=== PATIENT | male | born 1950 | race Caucasian/White ===

== ENCOUNTER 2019-07-28 12:39 | Outpatient (CLI) | payer OTHER, SELFPAY ==
--- NOTE | 2019-07-28 12:47 | USCV_ITS ---
Db Bach Age: 69 Gender: M : 1950 Exam Date: 07/28/2019 12:59 Ordering Phys: Mouna Metcalf XX Technologist: Sandra Saeed Exam Location: [facility] [place] Indication: TIA WITH RT EYE INVOLVMENT Risk Factors: Unknown Previous Vascular Surgery: None Right Brachial BP: / Left Brachial BP: / Right Left Velocity (cm/s) Spectral Plaque Velocity (cm/s) Spectral Plaque Syst/Diast Broadening Syst/Diast Broadening 87.10/ 17.60 Prox CCA 56.80 / 15.60 57.50/ 13.70 Mid CCA 65.30 / 14.90 42.10/ 10.10 Distal CCA 40.50 / 13.50 42.00/ 14.20 Prox ICA 54.00 / 17.00 64.50/ 23.90 Mid ICA 63.20 / 26.30 73.60/ 29.70 Distal ICA 71.00 / 33.40 70.50 ECA 78.80 1.28 ICA/CCA 1.09 Antegrade Vertebral Antegrade 32.30/ 6.40 cm/s 43.30/ 18.50 cm/s Tri Subclavian Tri 105.8 111.0 0 0 FINDINGS Comparison: none available. No significant elevation of systolic or diastolic velocities. Waveforms are normal. Mild, diffuse, bilateral, intimal thickening with no elevation of velocity. Bilateral antegrade vertebral arteries. CONCLUSIONS Bilateral ICA stenosis less than 50%. Mild diffuse intimal thickening . Dr. Ruth Randolph DO (Electronically Signed) Final Date: 29 July 2019 07:44 S
== END 2019-07-28 12:40 | disposition home or self-care (01) ==
LOC: RAD 12:41
PROVIDERS: Family Provider Nurse Practitioner; Visit Provider Psychiatry & Neurology Neurology
DX: I65.23 Occlusion and stenosis of bilateral carotid arteries (principal)
CPT/HCPCS: 93880

== ENCOUNTER 2020-12-06 11:27 | Outpatient (CLI) | payer OTHER, SELFPAY ==
--- NOTE | 2020-12-06 11:45 | MR_ITS ---
WS: [id number] MRI LUMBAR SPINE NONCONTRAST TECHNIQUE: Sagittal T1, T2 and STIR imaging. Axial T1 and T2 imaging. CLINICAL INFORMATION: LOW BACK PAIN W/RADICULOPATHY COMPARISON: None. FINDINGS: Mild lumbar curve. No acute compression. No high-grade central canal stenosis. Degenerative endplate- type changes worse at L3-4. L1-L2: Mild annular bulging. Tiny annular fissure. Spinal canal and foramen are patent. Mild facet ar thropathy. L2-L3: Mild disc bulging with slight effacement of the ventral thecal sac. Mild facet arthropathy. Sl ight narrowing of the subarticular recess bilaterally. Foramen are patent. L3-L4: Mild annular bulging. Small right foraminal protrusion with mild right foraminal narrowing. Sl ight narrowing of the left subarticular recess. Left foramen is patent. Mild facet arthropathy. L4-L5:Minimal annular bulging. Mild right and no significant left foraminal narrowing. Moderate facet arthropathy. Spinal canal is patent. L5-S1: Mild annular bulging. Spinal canal is patent. Foramen are patent. Mild to moderate facet arthr opathy. Visualized pelvic bony structures: Normal. Paravertebral soft tissues: Normal. MR/MR lumbar spine wo con* [id number] IMPRESSION: 1. Mild lumbar curve. No acute compression. No high-grade central canal stenos is. 2. Small right foraminal protrusion L3-4 with mild right foraminal narrowing. 3. Mild right L4-5 foraminal narrowing. 4. Mild to moderate facet arthropathy L3-L5. 5. Tiny annular fissure L1-2. 6. Mild annular bulging L2-3 with mild facet arthropathy. Slight narrowing of the subarticular recess bilaterally at this level. Mild narrowing of the left L 3-4 subarticular recess.
== END 2020-12-06 11:28 | disposition home or self-care (01) ==
LOC: RADSHAW 11:29
PROVIDERS: Family Provider Nurse Practitioner; PCP Nurse Practitioner; Visit Provider Nurse Practitioner
DX: M54.16 Radiculopathy, lumbar region (principal); M51.26 Other intervertebral disc displacement, lumbar region; M47.816 Spondylosis without myelopathy or radiculopathy, lumbar region; Q05.7 Lumbar spina bifida without hydrocephalus
CPT/HCPCS: 72148

== ENCOUNTER 2022-12-22 06:35 | Outpatient (CLI) | payer OTHER, SELFPAY ==
--- NOTE | 2022-12-22 06:46 | USCV_ITS ---
Db Bach Age: 72 Gender: M : 1950 Exam Date: 12/22/2022 06:56 Ordering Phys: Yudy Cano Technologist: Exam Location: [facility] – [place] Indication: screening HISTORY: Diameter (cm) AP x Transverse x Length Velocity (cm/s) Waveform Prox Aorta: 1.94 x 2.07 x 71.90 Mid Aorta: 1.71 x 2.08 x 78.50 Distal Aorta: 1.77 x 1.47 x 62.80 Right Iliac Prox: 0.99 x 1.01 x 147.40 Left Iliac Prox: 1.00 x 1.19 x 183.60 Stent Prox Landing x x Aneurysmal Sac Max x x Lt Lat Sac Dim Rt Lat Sac Dim Stent Dist Landing x x Right Iliac Stent x x Left Iliac Stent x x Right Renal Art Left Renal Art FINDINGS: Comparison: none available. Abdominal aorta is patent. Normal course and caliber of the abdominal aorta with no aneurysmal dilatation. Minimal scattered atherosclerotic plaque. CONCLUSIONS No evidence of abdominal aortic or bilateral iliac aneurysm. Dr. Ruth Randolph DO (Electronically Signed) Final Date: 22 December 2022 13:43 S
== END 2022-12-22 06:36 | disposition home or self-care (01) ==
PROVIDERS: PCP Nurse Practitioner; Visit Provider Nurse Practitioner
DX: Z01.89 Encounter for other specified special examinations (principal)
CPT/HCPCS: 76706

== ENCOUNTER → 2023-10-14 08:23 | Outpatient (BNVA) | payer OTHER, SELFPAY | PROVIDERS: PCP Nurse Practitioner; Visit Provider Nurse Practitioner Family | DX: L57.0 Actinic keratosis (principal); L57.8 Other skin changes due to chronic exposure to nonionizing radiation; D22.39 Melanocytic nevi of other parts of face; L81.4 Other melanin hyperpigmentation; L82.1 Other seborrheic keratosis; Z80.8 Family history of malignant neoplasm of other organs or systems | CPT/HCPCS: 17000; 99213 ==

== ENCOUNTER 2024-01-11 07:18 | Outpatient (CLI) | payer OTHER, SELFPAY ==
[2024-01-11 07:39] VITALS: BMI 24.3
--- NOTE | 2024-01-11 07:39 | ECG_ITS ---
[facility] Test Date: 2024-01-11 Pat Name: Db Bach Department: Room: Gender: Male Batch Or Continuous Still Operator: : 1950 Requested By: Yudy Desai Order Number: [id number] Crys BRIDGES: Interpretive Statements Lung unchanged pre/post procedure; Intraprocedure shortess of breath; Symptoms resoled by discharge [email or web address]
--- NOTE | 2024-01-11 07:39 | NMCV_ITS ---
NM patricia perf SPECT r/s* [id number] Db Bach Age: 73 Gender: M : 1950 Exam Date: 01/11/2024 08:22 Ordering Phys: Yudy Cano Technologist: STEFANIA Lenz Exam Location: [facility] Indications: CP STRESS TEST Please see separate stress test report in [facility] for full findings IMAGE PROTOCOL Rest/Stress 1 Lexiscan Day Radiopharmaceutical Dose (mCi) Administration Site Administered by Rest: Tc-99m 10.5 IV STEFANIA Lenz Sestamibi Stress:Tc-99m 32.6 IV STEFANIA Lenz Sestamibi Rest: 11-Jan-2024 60 Discovery 630 Stress: 11-Jan-2024 30 Discovery 630 0.4mg Lexiscan. Images obtained in supine and prone position. SPECT RESULTS Technical Quality: Excellent Raw Data Analysis: Normal Image Corrections: No attenuation or motion correction applied Summed Stress Score: 7 Summed Rest Score: 7 Summed Difference Score: 1 PERFUSION FINDINGS There is medium to large sized area of partially reversible perfusion defect noted in inferior and inferolateral [place]. 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 FUNCTIONAL RESULTS (calculated via Gated SPECT) Stress Image LV EF (%): 54 Stress EDV (mL):92 TID: 1.55 Stress ESV (mL):42 FUNCTIONAL FINDINGS: There is normal left ventricular systolic function. TID ratio is elevated. IMPRESSIONS 1. 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 2. LV systolic function is normal 3. TID ratio is elevated. This may represent subendocardial ischemia Hugo Arroyo MD (Electronically Signed) Final Date: 14 January 2024 08:58 S
[2024-01-11] MEDS: regadenoson 0.4 Mg/5 ml Syringe IVP (09:00)
[2024-01-11 09:07] VITALS: BP 117/71; PULSE 75
== END 2024-01-11 07:19 | disposition home or self-care (01) ==
PROVIDERS: PCP Nurse Practitioner; Visit Provider Nurse Practitioner
DX: R06.00 Dyspnea, unspecified (principal); R94.39 Abnormal result of other cardiovascular function study
CPT/HCPCS: 36415; 78452; 93017; 96374; A9500; J2785

== ENCOUNTER → 2024-01-27 09:09 | Outpatient (BNVA) | payer OTHER, SELFPAY | PROVIDERS: PCP Nurse Practitioner; Visit Provider Surgery | DX: Z12.11 Encounter for screening for malignant neoplasm of colon (principal) | CPT/HCPCS: 99204 ==

== ENCOUNTER 2024-02-23 11:24 | Day surgery (SDC) | payer OTHER, SELFPAY ==
[2024-02-23 11:43] VITALS: BP 160/89; PULSE 70; RESP 17; O2SAT 98; BMI 24.3
--- NOTE | 2024-02-23 11:51 | ANES.PREANE2 ---
Pre-Anesthetic Assessment Height/Weight: Height 1.73 m Weight 72.575 kg Pulse Resp BP Pulse Ox O2 Del Method 70 17 160/89 98 Room Air 02/23/24 11:43 02/23/24 11:43 02/23/24 11:43 02/23/24 11:43 02/23/24 11:43 Operation Date: 02/23/24 12:25 Proposed Procedures p Colonoscopy 35737, G0105, Z12.11(Not Applicable) - Forest Altamirano MD Familial anesthetic complications: None Was Beta Tari taken within 24 hours: N/A Was Clonidine taken within 24 hours: N/A Last intake: Intake Last Liquid Date 02/22/24 Last Liquid Time 22:00 Last Solid Date 02/21/24 Last Solid Time 16:00 Social No alcohol and No tobacco Exam alert, oriented x 3, clear to auscultation bilaterally and regular rate & rhythm Airway Mallampati: Class I Dentition: false GI Gastroesophageal Reflux Disease Metabolic Hyperlipidemia Anesthetic Plan ASA status: 2 Anesthesia: General Risk of > 500 ml blood loss (7ml/kg in children): No Medications/Allergies Home Medications Medication Instructions Recorded Confirmed Last Taken Type ascorbic acid (vitamin C) 500 mg 500 mg PO DAILY 12/19/21 02/18/24 02/21/24 History capsule atorvastatin 20 mg tablet 20 mg PO DAILY 12/19/21 02/18/24 02/21/24 History cyclobenzaprine 10 mg tablet 10 mg PO TID PRN Muscle Spasm 12/19/21 02/18/24 Unknown History omega 5-sak-acc-fish oil 60 mg-90 1 cap PO DAILY 12/19/21 02/18/24 02/21/24 History mg-500 mg capsule (Fish Oil) omeprazole 40 mg capsule,delayed 40 mg PO DAILY 12/19/21 02/18/24 02/21/24 History release tamsulosin 0.4 mg capsule 0.4 mg PO DAILY 12/19/21 02/18/24 02/21/24 History Allergies Allergy/AdvReac Type Severity Reaction Status Date / Time No Known Allergies Allergy Verified 02/18/24 08:01 [facility] Anesthesia Medical History Hyperlipidemia Gastro-esophageal reflux disease without esophagitis Benign prostate hyperplasia 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
[2024-02-23] MEDS: sodium chloride 0.9% 1,000 ML 30 ML IV (11:52)
--- NOTE | 2024-02-23 12:18 | P.HPUD_ITS ---
Surgery/Procedure H&P Update DATE OF PROCEDURE: February 23, 2024 DATE H&P PERFORMED: 01/27/24 H&P UPDATE INFORMATION: I have reviewed H&P completed within last 30 days, I have examined patient prior to procedure, No changes to prior documentation and H&P is in [facility] [place] EMR on date indicated PLANNED PROCEDURE: Operation Date: 02/23/24 12:25 Proposed Procedures p Colonoscopy 67208, G0105, Z12.11(Not Applicable) - Forest Altamirano MD
[2024-02-23 12:43] VITALS: BP 101/66; PULSE 59; RESP 18; TEMP 36.2; O2SAT 95
[2024-02-23 12:49] VITALS: BP 114/83; PULSE 56; RESP 18; TEMP 36.2; O2SAT 92
--- NOTE | 2024-02-23 13:19 | ANE.PACU2 ---
Inpatient post-anesthesia follow up: Airway intact: Yes Vital signs: Temperature 97.1 F Pulse Rate 56 Respiratory Rate 18 Blood Pressure 114/83 Pulse Oximetry 92 Oxygen Delivery Me thod Room Air Oxygen Flow Rate Fraction of Inspir ed Oxygen Hydration adequate: Yes Nausea and vomiting: Yes Pain level: 1 Mental status: Baseline
== END 2024-02-23 13:20 | disposition home or self-care (01) ==
PROVIDERS: PCP Nurse Practitioner; Visit Provider Surgery
PROC: 0DJD8ZZ Inspection of Lower Intestinal Tract, Via Natural or Artificial Opening Endoscopic (ICD-10-PCS; CPT 45378; principal; 2024-02-23 12:25)
DX: Z12.11 Encounter for screening for malignant neoplasm of colon (principal); D12.3 Benign neoplasm of transverse colon; K21.9 Gastro-esophageal reflux disease without esophagitis; E78.5 Hyperlipidemia, unspecified; F17.200 Nicotine dependence, unspecified, uncomplicated
CPT/HCPCS: 45380; 88305; J2704; J7030

== ENCOUNTER → 2024-03-22 13:12 | Outpatient (BNVA) | payer OTHER, SELFPAY | PROVIDERS: PCP Nurse Practitioner; Visit Provider Surgery | DX: Z09 Encounter for follow-up examination after completed treatment for conditions other than malignant neoplasm (principal) | CPT/HCPCS: 99213 ==

== ENCOUNTER → 2024-05-11 14:33 | Outpatient (BNVA) | payer OTHER, SELFPAY | PROVIDERS: PCP Nurse Practitioner; Visit Provider Internal Medicine Cardiovascular Disease | DX: R07.9 Chest pain, unspecified (principal) | CPT/HCPCS: 93005 ==

== ENCOUNTER → 2024-10-13 10:42 | Outpatient (BNVA) | payer OTHER, SELFPAY | PROVIDERS: PCP Nurse Practitioner; Visit Provider Nurse Practitioner Family | DX: L24.9 Irritant contact dermatitis, unspecified cause (principal); L80 Vitiligo; L57.8 Other skin changes due to chronic exposure to nonionizing radiation; D22.39 Melanocytic nevi of other parts of face; L81.4 Other melanin hyperpigmentation; L82.1 Other seborrheic keratosis; Z80.8 Family history of malignant neoplasm of other organs or systems; L57.0 Actinic keratosis | CPT/HCPCS: 17000; 99214 ==

== ENCOUNTER 2024-12-09 08:21 | Outpatient (CLI) | payer OTHER, SELFPAY ==
--- NOTE | 2024-12-09 08:24 | USCV_ITS ---
Db Bach Age: 74 Gender: M : 1950 Exam Date: 12/09/2024 08:40 Ordering Phys: Yudy Cano Technologist: NAHUM Exam Location: [facility] [place] Indication: AAA screening HISTORY: Diameter (cm) AP x Transverse x Length Velocity (cm/s) Waveform Prox Aorta: 1.97 x 1.97 x 49.80 Triphasic Mid Aorta: 1.61 x 1.61 x 64.10 Triphasic Distal Aorta: 1.32 x 1.45 x 59.60 Triphasic Right Iliac Prox: 0.89 x 1.01 x 90.80 Triphasic Left Iliac Prox: 0.86 x 0.91 x 97.10 Triphasic Stent Prox Landing x x Aneurysmal Sac Max x x Lt Lat Sac Dim Rt Lat Sac Dim Stent Dist Landing x x Right Iliac Stent x x Left Iliac Stent x x Right Renal Art Left Renal Art FINDINGS: CONCLUSIONS No evidence of abdominal aortic or bilateral iliac aneurysm. Mild atheromatous plaque John Ng MD (Electronically Signed) Final Date: 09 December 2024 11:49 S
== END 2024-12-09 08:22 | disposition home or self-care (01) ==
LOC: RAD 08:22
PROVIDERS: PCP Nurse Practitioner; Visit Provider Nurse Practitioner
DX: Z01.89 Encounter for other specified special examinations (principal); I70.90 Unspecified atherosclerosis
CPT/HCPCS: 76706